=== PATIENT | female | born 1980 | race Two or more races ===

== ENCOUNTER 2022-12-12 04:17 | Day surgery (SDC) | payer OTHER ==
[2022-12-08 16:31] VITALS: BMI 24.5
[2022-12-12] MEDS ORDERED: oxyCODONE HCL 5 MG TABLET PO PRN (12:51)
[2022-12-12] MEDS ORDERED: ONDANSETRON 4 MG/2 ML VIAL IVPUSH PRN (12:51)
[2022-12-12] MEDS ORDERED: LACTATED RINGERS SOLUTION 1,000 ML IV SCH (13:00)
[2022-12-12] MEDS ORDERED: LIDOCAINE HCL 1%, 10 MG/ML (20ML VIAL) ONE (13:01)
[2022-12-12] MEDS ORDERED: LIDOCAINE HCL/PF 2% SDV 5ML VIAL ONE (13:05)
[2022-12-12] MEDS ORDERED: PROPOFOL 20 ML ONE (13:06)
[2022-12-12] MEDS ORDERED: MIDAZOLAM HCL 2 MG/2 ML SINGLE DOSE VIAL ONE (13:06)
[2022-12-12] MEDS ORDERED: ONDANSETRON 4 MG/2 ML VIAL ONE (13:28)
[2022-12-12] MEDS ORDERED: ceFAZolin SODIUM 1 GM VIAL IVPB ONE (13:29)
[2022-12-12] MEDS ORDERED: LIDOCAINE HCL 1%, 10 MG/ML (20ML VIAL) INF ONE (13:31)
[2022-12-12] MEDS ORDERED: KETOROLAC TROMETHAMINE 30 MG/1 ML VIAL ONE (13:38)
[2022-12-12 14:22] VITALS: RESP 20
[2022-12-12 16:57] VITALS: BP 105/65; PULSE 64; TEMP 98.2
== END 2022-12-12 16:45 | disposition home or self-care (01) ==
LOC: JASU-SURG 04:17
PROVIDERS: ATTEND Surgery
PROC: 0HBT0ZZ Excision of Right Breast, Open Approach (ICD-10-PCS; principal; 2022-12-12 11:30)
DX: D24.1 Benign neoplasm of right breast (principal)
CPT/HCPCS: 19281; 76098-TC-FY; 81025